=== PATIENT | male | born 1940 | race Caucasian/White ===

== ENCOUNTER 2019-01-09 16:04 | Emergency (ER) | payer MEDICARE ==
[~2019-01-09] VITALS: Ht 177.8 cm; Wt 77.1 kg
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
--- NOTE | 2019-01-09 16:19 | NUR ---
GWEN GRAFF AT BEDSIDE FOR MSE.
[2019-01-09] MEDS ORDERED: TDAP DIPH,PERTUSS,TET VAC/PF 0.5 ML DISP.SYRIN IM ONE (16:28)
[2019-01-09] MEDS: LIDOCAINE HCL 1% 20 ML VIAL IJ ONE (16:30)
[2019-01-09] MEDS: TDAP DIPH,PERTUSS,TET VAC/PF 0.5 ML DISP.SYRIN IM ONE (16:30)
--- NOTE | 2019-01-09 16:38 | NUR ---
Patient discharged to home in stable conditon. Written and verbal after care instructions given. Patient verbalizes understanding of instructions. ALL BELONGINGS W/ PT. PT SELF-AMBULATED W/O DIFFICULTY.
[2019-01-09 16:39] VITALS: BP 142/83
== END 2019-01-09 16:44 | disposition home or self-care (01) ==
LOC: ER 16:04
DX: S01.81XA Laceration without foreign body of other part of head, initial encounter (principal); I10 Essential (primary) hypertension; Z88.2 Allergy status to sulfonamides; W22.8XXA Striking against or struck by other objects, initial encounter; Y93.89 Activity, other specified; Y92.89 Other specified places as the place of occurrence of the external cause; Y99.8 Other external cause status
CPT/HCPCS: 12011; 90471; 90715; 99283; J3490; A4217; A4663

== ENCOUNTER 2019-01-18 12:09 | Emergency (ER) | payer MEDICARE ==
[~2019-01-18] VITALS: Ht 177.8 cm; Wt 77.1 kg
--- NOTE | 2019-01-18 12:28 | NUR ---
GWEN GRAFF AT BEDSIDE FOR MSE.
--- NOTE | 2019-01-18 12:32 | NUR ---
Patient discharged to home in stable conditon. Written and verbal after care instructions given. Patient verbalizes understanding of instructions. ALL BELONGINGS W/ PT. PT SELF-AMBUALTED W/O DIFFICULTY.
[2019-01-18 12:34] VITALS: BP 138/88
== END 2019-01-18 12:34 | disposition home or self-care (01) ==
LOC: ER 12:09
DX: S01.81XD Laceration without foreign body of other part of head, subsequent encounter (principal); I10 Essential (primary) hypertension; Z88.2 Allergy status to sulfonamides; X58.XXXD Exposure to other specified factors, subsequent encounter
CPT/HCPCS: A4663

== ENCOUNTER 2022-12-18 15:18 | Emergency (ER) | payer MEDICARE ==
[~2022-12-18] VITALS: Ht 172.7 cm; Wt 64.4 kg
[2022-12-18] MEDS ORDERED: SILVER NITRATE APPLICATOR STICK EACH TP ONE ×2 (15:30→15:34)
[2022-12-18] MEDS ORDERED: MOME13HF2 INH (15:43)
[2022-12-18] MEDS ORDERED: ELIQUIS (15:43)
[2022-12-18] MEDS ORDERED: OLME5TAB3 (15:43)
[2022-12-18] MEDS ORDERED: VERAPAMIL (15:43)
--- NOTE | 2022-12-18 16:29 | NUR ---
Patient discharged to home by Dr Guardado in stable condition and steady gait. Written and verbal after care instructions given to patient. Patient verbalized understanding and compliance of instructions. 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
[2022-12-18 16:41] VITALS: BP 155/82
== END 2022-12-18 16:41 | disposition home or self-care (01) ==
LOC: ER 15:18
DX: H92.22 Otorrhagia, left ear (principal); I48.91 Unspecified atrial fibrillation; J45.909 Unspecified asthma, uncomplicated; I10 Essential (primary) hypertension; Z88.2 Allergy status to sulfonamides; Z79.899 Other long term (current) drug therapy
CPT/HCPCS: A4663